=== PATIENT | male | born 1990 | race Caucasian/White ===

== ENCOUNTER 2019-05-03 16:50 | Emergency (ER) | payer OTHER ==
[2019-05-03 17:10] VITALS: BP 126/72
--- NOTE | 2019-05-03 18:16 | ED ---
Throat Pain/Nasal Congestion - HPI Summary HPI Summary: 29 yr old with weakness, fever, chills, sore throat , runny nose, coughing, back aches, some diarrhea and some dysuria. Onset over the past three days. He denies drooling, denies penile discharge, denies pain on BM. Denies hesitancy of urination or frequency. He denies testicular pain. - History of Current Complaint Chief Complaint: UCGeneralIllness Time Seen by Provider: 05/03/19 17:31 - Allergies/Home Medications Allergies/Adverse Reactions: Allergies Allergy/AdvReac Type Severity Reaction Status Date / Time Penicillins Allergy Rash Verified 05/03/19 17:03 Home Medications: Home Medications Dm/PE/Acetaminophen/Doxylamine [Daytime-Nighttime Cold-Flu] 2 each PO BID PRN [History Confirmed 05/03/19] PMH/Surg Hx/FS Hx/Imm Hx Infectious Disease History: No Infectious Disease History: Denies: Traveled Outside the [place] in Last 30 Days - Family History Known Family History: Positive: None - Social History Occupation: Employed Full-time Alcohol Use: Occasionally Substance Use Type: Reports: None Smoking Status (MU): Former Smoker Type: Smokeless Tobacco Length of Time of Smoking/Using Tobacco: 4-5 yrs Review of Systems Positive: Fever, Chills, Fatigue Positive: Sore Throat, Nasal Discharge Positive: Cough Positive: Diarrhea All Other Systems Reviewed And Are Negative: Yes Physical Exam Triage Information Reviewed: Yes Vital Signs On Initial Exam: Initial Vitals Temp Pulse Resp BP Pulse Ox 98.3 F 81 15 126/72 100 05/03/19 17:06 05/03/19 17:06 05/03/19 17:06 05/03/19 17:06 05/03/19 17:06 Vital Signs Reviewed: Yes Appearance: Positive: Well-Appearing, No Pain Distress Skin: Positive: Warm, Skin Color Reflects Adequate Perfusion Head/Face: Positive: Normal Head/Face Inspection Eyes: Positive: EOMI ENT: Positive: Pharyngeal erythema, Nasal congestion, TMs normal Neck: Positive: Nontender, No Lymphadenopathy Respiratory/Lung Sounds: Positive: Clear to Auscultation, Breath Sounds Present Cardiovascular: Positive: RRR. Negative: Murmur Abdomen Description: Positive: Nontender Musculoskeletal: Positive: Strength/ROM Intact Neurological: Positive: Sensory/Motor Intact, Alert, Oriented to Person Place, Time, CN Intact II-III, Normal Gait, Speech Normal Psychiatric: Positive: Normal - [place] Coma Scale Best Eye Response: 4 - Spontaneous Best Motor Response: 6 - Obeys Commands Best Verbal Response: 5 - Oriented Coma Scale Total: 15 Diagnostics - Vital Signs Vital Signs Temp Pulse Resp BP Pulse Ox 05/03/19 17:06 98.3 F 81 15 126/72 100 - Laboratory Lab Results: Lab Results 05/03/19 05/03/19 Range/Units 17:59 18:03 POC Urine Color Dark yellow POC Urine Clarity Clear POC Urine pH 6.5 (5-9) POC Ur Specif [place] 1.015 (1.010-1.030) POC Urine Protein Trace A (Negative) POC Ur Glucose (UA) Negative (Negative) POC Urine Ketones Trace A (Negative) POC Urine Blood Negative (Negative) POC Urine Nitrite Negative (Negative) POC Urine Bilirubin Negative (Negative) POC Urine Urobilinogen 1.0 (Negative) POC U Leukocyte Esteras Negative (Negative) Group A Strep Rapid Negative (Negative) Lab Statement: Any lab studies that have been ordered have been reviewed, and results considered in the medical decision making process. EENT Course/Dx - Course Course Of Treatment: 29 yr old with URI symptoms, and GI symptoms. Urine dip negative. He is requesting a note for work. DC home. FU with PMD. - Diagnoses Provider Diagnoses: Upper respiratory infection, Diarrhea Discharge - Sign-Out/Discharge Documenting (check all that apply): Patient Departure All imaging exams completed and their final reports reviewed: No Studies - Discharge Plan Condition: Good Disposition: HOME Patient Education Materials: Acute Diarrhea (ED), Upper Respiratory Infection ( ED) Referrals: Criselda Boyce PA [Primary Care Provider] - - Billing Disposition and Condition Condition: GOOD Disposition: Home
[2019-05-07 13:06] LABS: Neisseria gonorrhoeae (GC) RNA Negative (Negative)
== END 2019-05-03 18:26 | disposition home or self-care (01) ==
LOC: UCCORT 16:50
DX: J06.9 Acute upper respiratory infection, unspecified (principal); R19.7 Diarrhea, unspecified; Z88.0 Allergy status to penicillin; Z87.891 Personal history of nicotine dependence
CPT/HCPCS: 81003; 87491; 87591; 87651; 99201; G0463